=== PATIENT | female | born 1955 | race Caucasian/White ===

== ENCOUNTER 2022-06-09 13:23 | Inpatient (IN) | payer MEDICARE, OTHER ==
[~2022-06-09] VITALS: Ht 157.5 cm; Wt 100.7 kg
[2022-06-09] MEDS ORDERED: NITROGLYCERIN OINT 1 GM PACKET TP ONE ×2 (13:45→14:09)
[2022-06-09] MEDS ORDERED: FUROSEMIDE 20 MG/2 ML VIAL IVP ONE (13:45)
[2022-06-09] MEDS ORDERED: FUROSEMIDE 40 MG/4 ML VIAL ONE (14:09)
[2022-06-09 14:46] LABS: HEMATOCRIT 37.7 % (31.2-41.9); MEAN CORPUSCULAR HEMOGLOBIN 27.2 uug (24.7-32.8); MEAN CORPUSCULAR VOLUME 84.5 fL (75.5-95.3); PLATELET COUNT (AUTO) 307 K/uL (179-408)
[2022-06-09 14:58] LABS: CARBON DIOXIDE 28 mmol/L (21-32); CHLORIDE 102 mmol/L (98-107); CREATININE 0.6 mg/dL (0.6-1.3); GLUCOSE 187 mg/dL (74-106); POTASSIUM 3.9 mmol/L (3.5-5.1); UREA NITROGEN, BLOOD 11 mg/dL (7-18)
[2022-06-09 15:08] LABS: ALANINE AMINOTRANSFERASE 27 U/L (14-59); ALKALINE PHOSPHATASE 292 U/L (50-136); ASPARTATE AMINOTRANSFERASE 16 U/L (15-37); BILIRUBIN,DIRECT 0.7 mg/dL (0.0-0.2); TOTAL PROTEIN, SERUM 6.5 g/dL (6.4-8.2)
[2022-06-09 19:02] VITALS: BP 144/87
[2022-06-09] MEDS ORDERED: REMEDY ESSENTIAL ZINC PASTE 113 GM TP PRN (19:45)
[2022-06-09] MEDS ORDERED: ONDANSETRON 4 MG/2 ML VIAL IV PRN (19:45)
[2022-06-09] MEDS ORDERED: ZOLPIDEM 5 MG TABLET PO PRN (19:45)
[2022-06-09] MEDS ORDERED: ACETAMINOPHEN 325 MG TABLET PO PRN (19:45)
[2022-06-09] MEDS ORDERED: MAGNESIUM HYDROXIDE 30 ML LIQUID UDC PO PRN (19:45)
[2022-06-09] MEDS: ENOXAPARIN SODIUM 40 MG/0.4 ML DISP.SYRIN SQ SCH (21:00)
[2022-06-09 21:39] VITALS: BP 144/87
[2022-06-10 05:23] VITALS: BP 158/87
[2022-06-10 05:46] LABS: HEMATOCRIT 36.2 % (31.2-41.9); PLATELET COUNT (AUTO) 312 K/uL (179-408)
[2022-06-10 05:58] LABS: CREATININE 0.7 mg/dL (0.6-1.3); MAGNESIUM 1.3 mg/dL (1.8-2.4); PHOSPHOROUS 2.9 mg/dL (2.5-4.9); POTASSIUM 3.7 mmol/L (3.5-5.1)
[2022-06-10] MEDS: MAGNESIUM SULFATE/D5W 100 ML IV SCH ×4 (09:38→12:07)
[2022-06-10 11:01] VITALS: BP 142/88
[2022-06-10] MEDS ORDERED: SEMA0.25 SQ (13:22)
[2022-06-10] MEDS ORDERED: LISI10TA29 PO (13:22)
[2022-06-10] MEDS ORDERED: ROSU10TA2 PEG (13:22)
[2022-06-10] MEDS ORDERED: METF-494 PO (13:22)
[2022-06-10] MEDS ORDERED: GLIP5TAB26 PO (13:22)
[2022-06-10] MEDS ORDERED: LEVO150T PO (13:22)
[2022-06-10] MEDS ORDERED: FURO40TA5 PO (13:22)
[2022-06-10] MEDS ORDERED: POTA8TAB3 PO (13:22)
[2022-06-10] MEDS ORDERED: MIRT-93 PO (13:22)
[2022-06-10] MEDS ORDERED: AMOX1TAB16 PO (15:10)
[2022-06-10 15:17] VITALS: BP 133/79
[2022-06-10] MEDS: FUROSEMIDE 40 MG/4 ML VIAL IV SCH (16:31)
[2022-06-10 20:00] VITALS: BP 131/70
[2022-06-10] MEDS: ENOXAPARIN SODIUM 40 MG/0.4 ML DISP.SYRIN SQ SCH (23:11)
[2022-06-10] MEDS ORDERED: MIRTAZAPINE 15 MG TABLET PO SCH (23:15)
[2022-06-11] VITALS: BP 145/82
[2022-06-11] MEDS ORDERED: MAGNESIUM HYDROXIDE 30 ML LIQUID UDC PO ONE (00:30)
[2022-06-11] MEDS ORDERED: INSULIN REGULAR, HUMAN 300 UNITS/3 ML VIAL SQ PRN (00:45)
[2022-06-11] MEDS ORDERED: DEXTROSE 50% 50 ML DISP.SYRIN IV PRN (00:45)
[2022-06-11] MEDS: BLOOD SUGAR DIAGNOSTIC 1 EACH STRIP VI SCH ×5 (00:45→21:00)
[2022-06-11] MEDS: ATORVASTATIN 40 MG TABLET PO SCH ×2 (00:57→21:52)
[2022-06-11] MEDS: INSULIN REGULAR, HUMAN 300 UNIT/3 ML VIAL SQ PRN ×4 (01:02→16:36)
[2022-06-11 04:00] VITALS: BP 135/76
[2022-06-11 05:41] LABS: CREATININE 0.7 mg/dL (0.6-1.3); MAGNESIUM 1.8 mg/dL (1.8-2.4); POTASSIUM 3.7 mmol/L (3.5-5.1)
[2022-06-11] MEDS: LEVOTHYROXINE SODIUM 150 MCG TABLET PO SCH (07:01)
[2022-06-11 08:00] VITALS: BP 138/72
[2022-06-11] MEDS: FUROSEMIDE 40 MG/4 ML VIAL IV SCH (09:11)
[2022-06-11] MEDS: POTASSIUM CHLORIDE 8 MEQ TAB.PRT.SR PO SCH (09:12)
[2022-06-11] MEDS: glipiZIDE XL 5 MG TABCR PO SCH (09:12)
[2022-06-11] MEDS: LISINOPRIL 10 MG TABLET PO SCH (09:12)
[2022-06-11 11:00] VITALS: BP 139/80
[2022-06-11] MEDS: NUTRISOURCE FIBER 4 GM PACKET PO SCH ×2 (12:43→17:32)
[2022-06-11] MEDS: HYDROCODONE/APAP 5-325MG TABLET PO PRN (12:45)
[2022-06-11 15:21] VITALS: BP 138/81
[2022-06-11] MEDS: GLUCERNA SHAKE 237 ML CAN PO SCH (17:32)
[2022-06-11] MEDS: METFORMIN XR 500 MG TAB.SR.24H PO SCH (17:32)
[2022-06-11] MEDS: FLUOXETINE HCL 10 MG CAPSULE PO SCH (17:32)
[2022-06-11 20:00] VITALS: BP 124/71
[2022-06-11] MEDS: ENOXAPARIN SODIUM 40 MG/0.4 ML DISP.SYRIN SQ SCH (21:59)
[2022-06-11] MEDS ORDERED: FUROSEMIDE 40 MG TABLET PO SCH ×2 (22:15→22:30)
[2022-06-12 00:49] VITALS: BP 127/75
[2022-06-12 04:00] VITALS: BP 125/80
[2022-06-12] MEDS: HYDROCODONE/APAP 5-325MG TABLET PO PRN (04:55)
[2022-06-12] MEDS: LEVOTHYROXINE SODIUM 150 MCG TABLET PO SCH (06:20)
[2022-06-12] MEDS: BLOOD SUGAR DIAGNOSTIC 1 EACH STRIP VI SCH ×3 (07:49→16:19)
[2022-06-12] MEDS: INSULIN REGULAR, HUMAN 300 UNIT/3 ML VIAL SQ PRN ×3 (08:10→16:21)
[2022-06-12] MEDS: glipiZIDE XL 5 MG TABCR PO SCH (08:56)
[2022-06-12] MEDS: LISINOPRIL 10 MG TABLET PO SCH (08:57)
[2022-06-12] MEDS: POTASSIUM CHLORIDE 8 MEQ TAB.PRT.SR PO SCH (08:57)
[2022-06-12] MEDS ORDERED: BUMETANIDE 1 MG TABLET PO SCH (09:00)
[2022-06-12] MEDS: GLUCERNA SHAKE 237 ML CAN PO SCH ×2 (09:12→16:29)
[2022-06-12] MEDS: NUTRISOURCE FIBER 4 GM PACKET PO SCH ×3 (09:12→16:29)
[2022-06-12 11:37] VITALS: BP 147/80
[2022-06-12] MEDS ORDERED: MAGNESIUM HYDROXIDE 30 ML LIQUID UDC PO PRN (12:00)
[2022-06-12] MEDS ORDERED: BUME1TAB8 PO (14:11)
[2022-06-12] MEDS: FLUOXETINE HCL 10 MG CAPSULE PO SCH (16:28)
[2022-06-12] MEDS: METFORMIN XR 500 MG TAB.SR.24H PO SCH (17:04)
== END 2022-06-12 18:05 | disposition home or self-care (01) | DRG 314 ==
LOC: ER 13:23 → MEDSURG3 18:14 → TELE3 06-10 15:25
PROVIDERS: ADMIT Nurse Practitioner Acute Care; ATTEND Nurse Practitioner Acute Care
DX: I27.29 Other secondary pulmonary hypertension (principal); I50.31 Acute diastolic (congestive) heart failure; F33.1 Major depressive disorder, recurrent, moderate; R45.851 Suicidal ideations; I08.2 Rheumatic disorders of both aortic and tricuspid valves; E03.9 Hypothyroidism, unspecified; E11.9 Type 2 diabetes mellitus without complications; M19.90 Unspecified osteoarthritis, unspecified site; I25.10 Atherosclerotic heart disease of native coronary artery without angina pectoris; M16.0 Bilateral primary osteoarthritis of hip; Z79.84 Long term (current) use of oral hypoglycemic drugs; I50.811 Acute right heart failure; F41.9 Anxiety disorder, unspecified; Z91.81 History of falling; Z20.822 Contact with and (suspected) exposure to COVID-19; I11.0 Hypertensive heart disease with heart failure
CPT/HCPCS: 36415; 71045; 72170; 83735; 84100; 84484; 85025; 93005; 93307; A4663; G0378; J1650; J1815; J1940; J3475; J8499